=== PATIENT | female | born 1975 | race Caucasian/White ===

== ENCOUNTER 2018-09-23 09:17 | Emergency (ER) | payer MEDICAID | END 2018-09-23 09:44 | disposition home or self-care (01) | LOC: FTE 09:17 | DX: J06.9 Acute upper respiratory infection, unspecified (principal); E11.9 Type 2 diabetes mellitus without complications; I10 Essential (primary) hypertension | CPT/HCPCS: 99282; Z7502 ==

== ENCOUNTER 2019-01-25 10:39 | Inpatient (IN) | payer MEDICAID ==
[2019-01-25 11:02] LABS: ADD MAN DIFF? NO
[2019-01-25 11:05] LABS: BASOPHILS % 0.3 % (0.0-2.0); EOSINOPHILS # 0.1 10^3/ul (0.0-0.5); HEMOGLOBIN 11.2 g/dl (12.0-16.0); LYMPHOCYTES # 1.1 10^3/ul (0.8-2.9); LYMPHOCYTES % 15.7 % (15.0-51.0); MEAN CORPUSCULAR HEMOGLOBIN 27.1 pg (29.0-33.0); MEAN CORPUSCULAR VOLUME 84.7 fl (82.0-101.0); MEAN PLATELET VOLUME 10.4 fl (7.4-10.4); MONOCYTE # 0.4 10^3/ul (0.3-0.9); MONOCYTES % 6.1 % (0.0-11.0); NEUTROPHIL # 5.4 10^3/ul (1.6-7.5); NEUTROPHILS % 76.2 % (39.0-77.0); PLATELET COUNT 198 10^3/UL (140-415); RED BLOOD COUNT 4.13 10^6/ul (4.20-5.40); RED CELL DISTRIBUTION WIDTH 16.2 % (11.5-14.5)
[2019-01-25 11:05] LABS: WHITE BLOOD COUNT 7.1 10^3/ul (4.8-10.8)
[2019-01-25 11:17] LABS: ADD UMIC YES; UR ASCORBIC ACID NEGATIVE (NEGATIVE); UR BACTERIA FEW /HPF (NONE SEEN); UR BILIRUBIN (Dip) NEGATIVE (NEGATIVE); UR BLOOD (Dip) NEGATIVE (NEGATIVE); UR CLARITY CLOUDY (CLEAR); UR COLOR YELLOW (YELLOW); UR GLUCOSE (Dip) NEGATIVE (NEGATIVE); UR KETONES (Dip) NEGATIVE (NEGATIVE); UR LEUKOCYTE ESTERASE (Dip) 2+ Leu/ul (NEGATIVE); UR NITRITE (Dip) NEGATIVE (NEGATIVE); UR RBC 2 /HPF (0-5); UR SPECIFIC GRAVITY (Dip) 1.018 (1.003-1.030); UR SQUAMOUS EPITHELIAL CELL MODERATE /HPF (FEW); UR TOTAL PROTEIN (Dip) NEGATIVE (NEGATIVE); UR UROBILINOGEN (Dip) NEGATIVE (NEGATIVE); UR WBC 10 /HPF (0-5)
[2019-01-25 11:23] LABS: ALANINE AMINOTRANSFERASE 19 IU/L (13-69); ALBUMIN 3.8 g/dl (3.3-4.9); ALBUMIN/GLOBULIN RATIO 1.18; ALKALINE PHOSPHATASE 104 IU/L (42-121); ANION GAP 7 (5-13); ASPARTATE AMINO TRANSFERASE 16 IU/L (15-46); BILIRUBIN,INDIRECT 0.4 mg/dl (0-1.1); BILIRUBIN,TOTAL 0.4 mg/dl (0.2-1.3); BLOOD UREA NITROGEN 9 mg/dl (7-20); CALCIUM 9.5 mg/dl (8.4-10.2); CARBON DIOXIDE 21 mmol/L (21-31); CHLORIDE 110 mmol/L (97-110); CREATININE 0.52 mg/dl (0.44-1.00); Estimated GFR > 60 mL/min (>60); GLUCOSE 113 mg/dl (70-220); POTASSIUM 4.2 mmol/L (3.5-5.1); SODIUM 138 mmol/L (135-144); URIC ACID 3.1 mg/dl (3.1-7.9)
[2019-01-25 11:27] LABS: INR 0.88; PARTIAL THROMBOPLASTIN TIME 30.4 Sec (23.0-35.0); PT RATIO 0.9
[2019-01-25] MEDS ORDERED: AL HYDROX/MG HYDROX/SIMETH 30 ML CUP PO (13:30)
[2019-01-25] MEDS: LACTATED RINGER'S 1,000 ML IV (14:49)
[2019-01-25] MEDS ORDERED: GLUCAGON 1 MG INJ IM (17:00)
[2019-01-25] MEDS ORDERED: DEXTROSE 50% 50 ML SYRINGE IV ×2 (17:00)
[2019-01-25] MEDS ORDERED: GLUCOSE GEL 15 GRAM TUBE BUCCAL (17:00)
[2019-01-25] MEDS ORDERED: GLUCOSE GEL 15 GRAM TUBE PO ×2 (17:00)
[2019-01-25] MEDS ORDERED: ACCU-CHEK XX ×2 (17:05→17:35)
[2019-01-25] MEDS ORDERED: metFORMIN 500 MG TAB GTB (17:35)
[2019-01-25] MEDS: metFORMIN 500 MG TAB PO ×2 (19:00→22:44)
[2019-01-25] MEDS: ACCU-CHEK XX (20:05)
[2019-01-25] MEDS: INSULIN ASPART [NOVOLOG] 3 ML PEN SC (20:18)
[2019-01-25] MEDS: BETAMET NA PHOS/AC(6 MG/ML) 2 ML INJ SYG IM (20:20)
[2019-01-26] MEDS ORDERED: metFORMIN 500 MG TAB PO (08:05)
[2019-01-26] MEDS: ACCU-CHEK XX ×4 (08:40→20:58)
[2019-01-26] MEDS: FERROUS SULFATE (EC) 325 MG TAB PO (08:57)
[2019-01-26] MEDS: metFORMIN 500 MG TAB PO ×2 (08:57→17:48)
[2019-01-26] MEDS: DOCUSATE SODIUM 100 MG CAP PO (08:57)
[2019-01-26] MEDS: PRENATAL VITAMIN PO (08:57)
[2019-01-26] MEDS ORDERED: PRENATAL VITAMIN PO (09:00)
[2019-01-26] MEDS ORDERED: LACTATED RINGER'S 1,000 ML IV (10:00)
[2019-01-26] MEDS: BETAMET NA PHOS/AC(6 MG/ML) 2 ML INJ SYG IM ×2 (15:00→21:26)
[2019-01-26] MEDS: INSULIN ASPART [NOVOLOG] 3 ML PEN SC ×3 (15:38→21:03)
[2019-01-26 16:16] LABS: COLLECTION PERIOD 24 hrs
[2019-01-26 17:16] LABS: COLLECTION PERIOD 24 hrs; CREATININE,URINE RANDOM 72.37 mg/dl (20-320); VOLUME 2200 ml/24hrs; VOLUME 2200 mls
[2019-01-26 17:19] LABS: CREATININE CLEARANCE 212.6 mls/min (84.0-162.0); SCRET 0.52 mg/dl (0.44-1.00)
[2019-01-27] MEDS: PRENATAL VITAMIN PO (08:29)
[2019-01-27] MEDS: DOCUSATE SODIUM 100 MG CAP PO (08:29)
[2019-01-27] MEDS: FERROUS SULFATE (EC) 325 MG TAB PO (08:30)
[2019-01-27] MEDS: metFORMIN 500 MG TAB PO ×2 (08:32→17:59)
[2019-01-27] MEDS: INSULIN ASPART [NOVOLOG] 3 ML PEN SC ×3 (10:41→20:26)
[2019-01-27] MEDS ORDERED: LABETALOL 200 MG TAB PO (14:00)
[2019-01-27] MEDS: ACCU-CHEK XX ×4 (19:00→20:19)
[2019-01-28] MEDS: PRENATAL VITAMIN PO (08:28)
[2019-01-28] MEDS: FERROUS SULFATE (EC) 325 MG TAB PO (08:28)
[2019-01-28] MEDS: DOCUSATE SODIUM 100 MG CAP PO (08:28)
[2019-01-28] MEDS: metFORMIN 500 MG TAB PO (08:29)
== END 2019-01-28 12:21 | disposition home or self-care (01) | DRG 832 ==
LOC: OBT 10:39 → L-D 10:39 → OBT 11:55 → PP1 11:55
DX: O10.913 Unspecified pre-existing hypertension complicating pregnancy, third trimester (principal); O24.113 Pre-existing type 2 diabetes mellitus, in pregnancy, third trimester; O09.523 Supervision of elderly multigravida, third trimester; E11.9 Type 2 diabetes mellitus without complications; O99.213 Obesity complicating pregnancy, third trimester; Z3A.33 33 weeks gestation of pregnancy
CPT/HCPCS: 76818; 80053; 81001; 82575; 82962; 84156; 84560; 85025; 85610; 85730

== ENCOUNTER 2019-01-31 06:24 | Emergency (ER) | payer MEDICAID ==
[2019-01-31 07:07] LABS: ADD MAN DIFF? NO
[2019-01-31 07:12] LABS: WHITE BLOOD COUNT 8.2 10^3/ul (4.8-10.8)
[2019-01-31 07:12] LABS: BASOPHILS % 0.2 % (0.0-2.0); EOSINOPHILS # 0.2 10^3/ul (0.0-0.5); EOSINOPHILS % 2.7 % (0.0-7.0); HEMATOCRIT 31.1 % (37.0-47.0); LYMPHOCYTES # 1.1 10^3/ul (0.8-2.9); LYMPHOCYTES % 13.1 % (15.0-51.0); MEAN CORPUSCULAR HEMOGLOBIN 27.4 pg (29.0-33.0); MEAN CORPUSCULAR HGB CONC 32.2 g/dl (32.0-37.0); MEAN CORPUSCULAR VOLUME 85.2 fl (82.0-101.0); MEAN PLATELET VOLUME 11.3 fl (7.4-10.4); MONOCYTE # 0.7 10^3/ul (0.3-0.9); MONOCYTES % 8.9 % (0.0-11.0); NEUTROPHIL # 6.1 10^3/ul (1.6-7.5); NEUTROPHILS % 74.2 % (39.0-77.0); PLATELET COUNT 177 10^3/UL (140-415); RED BLOOD COUNT 3.65 10^6/ul (4.20-5.40); RED CELL DISTRIBUTION WIDTH 16.5 % (11.5-14.5)
[2019-01-31 07:30] LABS: ALANINE AMINOTRANSFERASE 28 IU/L (13-69); ALBUMIN 3.3 g/dl (3.3-4.9); ALBUMIN/GLOBULIN RATIO 1.03; ALKALINE PHOSPHATASE 112 IU/L (42-121); ANION GAP 8 (5-13); ASPARTATE AMINO TRANSFERASE 27 IU/L (15-46); BILIRUBIN,INDIRECT 0.5 mg/dl (0-1.1); BILIRUBIN,TOTAL 0.5 mg/dl (0.2-1.3); BLOOD UREA NITROGEN 10 mg/dl (7-20); CALCIUM 9.1 mg/dl (8.4-10.2); CARBON DIOXIDE 20 mmol/L (21-31); CHLORIDE 112 mmol/L (97-110); CREATINE KINASE 81 IU/L (23-200); CREATININE 0.54 mg/dl (0.44-1.00); Estimated GFR > 60 mL/min (>60); GLUCOSE 93 mg/dl (70-220); POTASSIUM 4.2 mmol/L (3.5-5.1); SODIUM 140 mmol/L (135-144); TOTAL PROTEIN 6.5 g/dl (6.1-8.1)
[2019-01-31 07:40] LABS: CK INDEX 1.6; CK-MB 1.27 ng/ml (0.0-2.4); TROPONIN-I < 0.012 ng/ml (0.000-0.120)
== END 2019-01-31 10:11 | disposition home or self-care (01) ==
LOC: E/R 06:24
DX: O99.89 Other specified diseases and conditions complicating pregnancy, childbirth and the puerperium (principal); M94.0 Chondrocostal junction syndrome [Tietze]; O10.013 Pre-existing essential hypertension complicating pregnancy, third trimester; O24.313 Unspecified pre-existing diabetes mellitus in pregnancy, third trimester; Z3A.35 35 weeks gestation of pregnancy; Z79.84 Long term (current) use of oral hypoglycemic drugs
CPT/HCPCS: 80053; 82550; 82553; 84484; 85025; 93005; 99284-25

== ENCOUNTER 2019-01-31 10:18 | Inpatient (IN) | payer MEDICAID ==
[~2019-01-31 10:18] MED LIST: EPHEDrine 25 MG/5 ML SYG
[2019-01-31] MEDS ORDERED: LABETALOL 100 MG TAB PO (12:22)
[2019-01-31 12:54] LABS: ADD MAN DIFF? NO
[2019-01-31 12:56] LABS: WHITE BLOOD COUNT 7.9 10^3/ul (4.8-10.8)
[2019-01-31 12:56] LABS: BASOPHILS % 0.4 % (0.0-2.0); EOSINOPHILS # 0.2 10^3/ul (0.0-0.5); HEMATOCRIT 32.5 % (37.0-47.0); HEMOGLOBIN 10.3 g/dl (12.0-16.0); LYMPHOCYTES # 0.8 10^3/ul (0.8-2.9); LYMPHOCYTES % 10.6 % (15.0-51.0); MEAN CORPUSCULAR HGB CONC 31.7 g/dl (32.0-37.0); MEAN CORPUSCULAR VOLUME 85.3 fl (82.0-101.0); MEAN PLATELET VOLUME 11.2 fl (7.4-10.4); MONOCYTE # 0.6 10^3/ul (0.3-0.9); MONOCYTES % 7.5 % (0.0-11.0); NEUTROPHIL # 6.1 10^3/ul (1.6-7.5); NEUTROPHILS % 77.7 % (39.0-77.0); PLATELET COUNT 175 10^3/UL (140-415); RED BLOOD COUNT 3.81 10^6/ul (4.20-5.40); RED CELL DISTRIBUTION WIDTH 16.6 % (11.5-14.5)
[2019-01-31] MEDS ORDERED: OXYTOCIN 30 UNITS/LR 500 ML IV ×3 (13:00→21:36)
[2019-01-31] MEDS ORDERED: CARBOPROST 250 MCG INJ IM (13:00)
[2019-01-31] MEDS ORDERED: METHYLERGONOVINE 0.2 MG INJ IM (13:00)
[2019-01-31] MEDS ORDERED: MISOPROSTOL 200 MCG TAB PR ×2 (13:00→20:30)
[2019-01-31 13:04] LABS: ADD UMIC YES; UR AMORPHOUS CRYSTAL FEW /HPF (NONE SEEN); UR ASCORBIC ACID NEGATIVE (NEGATIVE); UR BACTERIA FEW /HPF (NONE SEEN); UR BILIRUBIN (Dip) NEGATIVE (NEGATIVE); UR BLOOD (Dip) NEGATIVE (NEGATIVE); UR CLARITY SLIGHTLY CLOUDY (CLEAR); UR COLOR YELLOW (YELLOW); UR GLUCOSE (Dip) NEGATIVE (NEGATIVE); UR KETONES (Dip) 1+ mg/dL (NEGATIVE); UR LEUKOCYTE ESTERASE (Dip) 1+ Leu/ul (NEGATIVE); UR NITRITE (Dip) NEGATIVE (NEGATIVE); UR RBC 2 /HPF (0-5); UR SPECIFIC GRAVITY (Dip) 1.013 (1.003-1.030); UR SQUAMOUS EPITHELIAL CELL FEW /HPF (FEW); UR TOTAL PROTEIN (Dip) NEGATIVE (NEGATIVE); UR UROBILINOGEN (Dip) NEGATIVE (NEGATIVE); UR WBC 4 /HPF (0-5)
[2019-01-31 13:05] LABS: CREATININE,URINE RANDOM 61.95 mg/dl (20-320); PROTEIN/CREAT RATIO 0.14 RATIO
[2019-01-31 13:15] LABS: ALANINE AMINOTRANSFERASE 31 IU/L (13-69); ALBUMIN 3.5 g/dl (3.3-4.9); ALBUMIN/GLOBULIN RATIO 1.06; ALKALINE PHOSPHATASE 124 IU/L (42-121); ANION GAP 7 (5-13); ASPARTATE AMINO TRANSFERASE 27 IU/L (15-46); BILIRUBIN,INDIRECT 0.6 mg/dl (0-1.1); BILIRUBIN,TOTAL 0.6 mg/dl (0.2-1.3); BLOOD UREA NITROGEN 8 mg/dl (7-20); CALCIUM 9.3 mg/dl (8.4-10.2); CARBON DIOXIDE 22 mmol/L (21-31); CHLORIDE 110 mmol/L (97-110); CREATININE 0.53 mg/dl (0.44-1.00); Estimated GFR > 60 mL/min (>60); GLUCOSE 77 mg/dl (70-220); POTASSIUM 4.1 mmol/L (3.5-5.1); PROTIME 12.3 Sec (11.9-14.9); SODIUM 139 mmol/L (135-144); TOTAL PROTEIN 6.8 g/dl (6.1-8.1); URIC ACID 4.4 mg/dl (3.1-7.9)
[2019-01-31 13:16] LABS: PARTIAL THROMBOPLASTIN TIME 30.2 Sec (23.0-35.0)
[2019-01-31] MEDS: LACTATED RINGER'S 1,000 ML IV ×4 (13:38→22:24)
[2019-01-31 14:57] LABS: RAPID PLASMA REAGIN NONREACTIVE (NR)
[2019-01-31] MEDS: ACETAMINOPHEN 500 MG TAB PO (19:25)
[2019-01-31] MEDS: DEXTROSE 5%-LR 1,000 ML IV (19:45)
[2019-01-31] MEDS ORDERED: morphine SULFATE/PF (10 MG/10 ML) INJ (20:21)
[2019-01-31] MEDS ORDERED: LANOLIN HPA 1 PKT TOP (20:30)
[2019-01-31] MEDS ORDERED: NIFEdipine 10 MG CAP PO (20:30)
[2019-01-31] MEDS ORDERED: NA PHOSPHATE/BIPHOS 133 ML ENEMA PR (20:30)
[2019-01-31] MEDS ORDERED: OXYCODONE/ACETAMINOPHEN (5/325) TAB PO ×2 (20:30)
[2019-01-31] MEDS: CEFAZOLIN 3 GM in DEXTROSE 5% 100 ML IV (20:45)
[2019-01-31] MEDS ORDERED: MIDAZOLAM 1 MG/ML 2 ML INJ (20:55)
[2019-01-31] MEDS ORDERED: OXYTOCIN 10 UNIT INJ ×2 (20:55→21:30)
[2019-01-31] MEDS ORDERED: ONDANSETRON 4 MG INJ (20:55)
[2019-01-31] MEDS: SENNA/DOCUSATE NA (8.6MG/50MG) TAB PO (21:00)
[2019-01-31] MEDS ORDERED: LORAZEPAM 2 MG INJ IV (21:00)
[2019-01-31] MEDS ORDERED: MEPERIDINE 25 MG INJ IV (21:00)
[2019-01-31] MEDS ORDERED: NALOXONE (0.4 MG/ML) INJ IV (21:00)
[2019-01-31] MEDS ORDERED: NALBUPHINE HCL (10 MG/1 ML) INJ IV (21:00)
[2019-01-31] MEDS ORDERED: MIDAZOLAM 1 MG/ML 2 ML INJ IV (21:00)
[2019-01-31] MEDS ORDERED: DIPHENHYDRAMINE 50 MG INJ IV ×2 (21:00)
[2019-01-31] MEDS ORDERED: ZOLPIDEM 5 MG TAB PO (21:00)
[2019-01-31] MEDS ORDERED: HYDROmorphONE 0.5 MG/0.5 ML SYG IV ×2 (21:00)
[2019-01-31] MEDS ORDERED: PHENYLephrine (100 MCG/ML) 10ML SYG (21:36)
[2019-01-31] MEDS: LABETALOL 200 MG TAB PO (22:18)
[2019-01-31] MEDS: ONDANSETRON 4 MG INJ IV (22:19)
[2019-01-31] MEDS: LABETALOL HCL 20MG INJ IV ×2 (22:50→23:48)
[2019-01-31] MEDS: OXYTOCIN 30 UNITS/LR 500 ML IV (22:56)
[2019-02-01] MEDS: LABETALOL HCL 20MG INJ IV (00:24)
[2019-02-01] MEDS: LACTATED RINGER'S 1,000 ML IV (04:47)
[2019-02-01] MEDS: LABETALOL 200 MG TAB PO ×3 (05:56→21:56)
[2019-02-01 06:52] LABS: ADD MAN DIFF? NO
[2019-02-01 06:57] LABS: ABNORMAL IP MESSAGE 1; BASOPHILS % 0.1 % (0.0-2.0); EOSINOPHILS % 0.3 % (0.0-7.0); HEMATOCRIT 29.4 % (37.0-47.0); HEMOGLOBIN 9.3 g/dl (12.0-16.0); LYMPHOCYTES # 0.5 10^3/ul (0.8-2.9); LYMPHOCYTES % 5.4 % (15.0-51.0); MEAN CORPUSCULAR HEMOGLOBIN 27.3 pg (29.0-33.0); MEAN CORPUSCULAR HGB CONC 31.6 g/dl (32.0-37.0); MEAN CORPUSCULAR VOLUME 86.2 fl (82.0-101.0); MEAN PLATELET VOLUME 11.6 fl (7.4-10.4); MONOCYTE # 0.8 10^3/ul (0.3-0.9); MONOCYTES % 7.8 % (0.0-11.0); NEUTROPHIL # 8.3 10^3/ul (1.6-7.5); NEUTROPHILS % 85.9 % (39.0-77.0); PLATELET COUNT 160 10^3/UL (140-415); RED BLOOD COUNT 3.41 10^6/ul (4.20-5.40); RED CELL DISTRIBUTION WIDTH 16.5 % (11.5-14.5)
[2019-02-01 06:57] LABS: WHITE BLOOD COUNT 9.6 10^3/ul (4.8-10.8)
[2019-02-01 06:58] LABS: POSITIVE DIFF @See below
[2019-02-01] MEDS: SENNA/DOCUSATE NA (8.6MG/50MG) TAB PO ×2 (08:41→21:55)
[2019-02-01] MEDS: metFORMIN 500 MG TAB PO ×2 (08:42→17:54)
[2019-02-01] MEDS: PIPER-TAZO 3.375 GM IV (PMX) 100 ML IVPB ×3 (08:43→21:55)
[2019-02-01] MEDS: KETOROLAC 30 MG INJ IV (12:18)
[2019-02-01 14:39] LABS: ADD UMIC YES; UR ASCORBIC ACID NEGATIVE (NEGATIVE); UR BILIRUBIN (Dip) NEGATIVE (NEGATIVE); UR BLOOD (Dip) 3+ mg/dL (NEGATIVE); UR CLARITY SLIGHTLY CLOUDY (CLEAR); UR COLOR YELLOW (YELLOW); UR GLUCOSE (Dip) NEGATIVE (NEGATIVE); UR KETONES (Dip) 1+ mg/dL (NEGATIVE); UR LEUKOCYTE ESTERASE (Dip) TRACE Leu/ul (NEGATIVE); UR MUCUS FEW /HPF (NONE SEEN); UR NITRITE (Dip) NEGATIVE (NEGATIVE); UR RBC > 182 /HPF (0-5); UR SQUAMOUS EPITHELIAL CELL FEW /HPF (FEW); UR TOTAL PROTEIN (Dip) 1+ mg/dl (NEGATIVE); UR UROBILINOGEN (Dip) 1+ mg/dL (NEGATIVE); UR WBC 10 /HPF (0-5)
[2019-02-01 15:22] LABS: LACTIC ACID 1.2 mmol/L (0.5-2.0)
[2019-02-01] MEDS: ENOXAPARIN 40 MG/0.4 ML SYG SC (16:05)
[2019-02-01] MEDS: ACETAMINOPHEN 325 MG TAB PO ×2 (18:03→22:24)
[2019-02-01] MEDS: SOD CHLORIDE 0.9% 100 ML (19:38)
[2019-02-01] MEDS: IOHEXOL 100 ML (19:38)
[2019-02-01 20:35] LABS: D-DIMER 3591.02 ng/ml (<460)
[2019-02-02] MEDS: ACETAMINOPHEN 325 MG TAB PO ×2 (05:56→13:58)
[2019-02-02] MEDS: PIPER-TAZO 3.375 GM IV (PMX) 100 ML IVPB ×3 (05:56→22:53)
[2019-02-02] MEDS: LABETALOL 200 MG TAB PO ×3 (05:57→22:06)
[2019-02-02] MEDS: metFORMIN 500 MG TAB PO ×2 (08:37→17:54)
[2019-02-02] MEDS: SENNA/DOCUSATE NA (8.6MG/50MG) TAB PO ×2 (08:37→22:06)
[2019-02-02] MEDS: ENOXAPARIN 40 MG/0.4 ML SYG SC ×2 (08:38→23:35)
[2019-02-02 08:50] LABS: ADD MAN DIFF? NO
[2019-02-02 08:54] LABS: WHITE BLOOD COUNT 9.2 10^3/ul (4.8-10.8)
[2019-02-02 08:54] LABS: BASOPHILS % 0.3 % (0.0-2.0); EOSINOPHILS # 0.1 10^3/ul (0.0-0.5); EOSINOPHILS % 1.5 % (0.0-7.0); HEMATOCRIT 30.6 % (37.0-47.0); HEMOGLOBIN 9.9 g/dl (12.0-16.0); LYMPHOCYTES # 0.7 10^3/ul (0.8-2.9); LYMPHOCYTES % 7.3 % (15.0-51.0); MEAN CORPUSCULAR HEMOGLOBIN 27.4 pg (29.0-33.0); MEAN CORPUSCULAR HGB CONC 32.4 g/dl (32.0-37.0); MEAN CORPUSCULAR VOLUME 84.8 fl (82.0-101.0); MEAN PLATELET VOLUME 11.4 fl (7.4-10.4); MONOCYTE # 0.8 10^3/ul (0.3-0.9); MONOCYTES % 8.6 % (0.0-11.0); NEUTROPHIL # 7.5 10^3/ul (1.6-7.5); NEUTROPHILS % 81.6 % (39.0-77.0); PLATELET COUNT 194 10^3/UL (140-415); RED BLOOD COUNT 3.61 10^6/ul (4.20-5.40); RED CELL DISTRIBUTION WIDTH 16.9 % (11.5-14.5)
[2019-02-02] MEDS: GUAIFENESIN 20 MG/ML 5ML CUP PO ×3 (12:24→22:10)
[2019-02-03] MEDS: GUAIFENESIN 20 MG/ML 5ML CUP PO ×4 (03:01→23:15)
[2019-02-03] MEDS: PIPER-TAZO 3.375 GM IV (PMX) 100 ML IVPB ×3 (05:37→23:06)
[2019-02-03] MEDS: LABETALOL 200 MG TAB PO ×3 (05:37→22:24)
[2019-02-03] MEDS: metFORMIN 500 MG TAB PO ×2 (08:21→16:56)
[2019-02-03] MEDS: SENNA/DOCUSATE NA (8.6MG/50MG) TAB PO ×2 (08:21→22:22)
[2019-02-03] MEDS: ENOXAPARIN 40 MG/0.4 ML SYG SC ×2 (08:24→22:24)
[2019-02-03] MEDS ORDERED: ENOXAPARIN 40 MG/0.4 ML SYG SC (09:00)
[2019-02-03] MEDS: MEASLES,MUMPS,RUBELLA VACCINE INJ SC* (09:00)
[2019-02-03] MEDS: DIPHTH/TET/ACEL PERTUSS (ADULT) 0.5 ML VIAL IM* (09:00)
[2019-02-04] MEDS: GUAIFENESIN 20 MG/ML 5ML CUP PO (03:16)
[2019-02-04] MEDS: LABETALOL 200 MG TAB PO (06:01)
[2019-02-04] MEDS: PIPER-TAZO 3.375 GM IV (PMX) 100 ML IVPB (06:04)
[2019-02-04] MEDS: metFORMIN 500 MG TAB PO (08:32)
[2019-02-04] MEDS: ENOXAPARIN 40 MG/0.4 ML SYG SC (08:34)
[2019-02-04] MEDS: SENNA/DOCUSATE NA (8.6MG/50MG) TAB PO (08:35)
[2019-02-04] MEDS: NIFEdipine (XL) 60 MG TAB PO (08:50)
== END 2019-02-04 16:00 | disposition home or self-care (01) | DRG 786 ==
LOC: OBT 10:18 → PP1 02-01 01:25 → L-D 10:20 → OBT 12:47 → L-D 12:47
PROVIDERS: Specialist
PROC: 10D00Z1 Extraction of Products of Conception, Low, Open Approach (ICD-10-PCS; principal; 2019-01-31 20:45)
DX: O65.5 Obstructed labor due to abnormality of maternal pelvic organs (principal); O60.13X0 Preterm labor second trimester with preterm delivery third trimester, not applicable or unspecified; O24.12 Pre-existing type 2 diabetes mellitus, in childbirth; O10.92 Unspecified pre-existing hypertension complicating childbirth; O34.211 Maternal care for low transverse scar from previous cesarean delivery; O13.4 Gestational [pregnancy-induced] hypertension without significant proteinuria, complicating childbirth; E11.9 Type 2 diabetes mellitus without complications; O99.214 Obesity complicating childbirth; Z3A.34 34 weeks gestation of pregnancy; Z37.0 Single live birth
CPT/HCPCS: 71046; 71275; 76815; 76818; 80053; 81001; 81003; 82570; 82962; 83605; 84560; 85025; 85378; 85610; 85730; 86592; 86850; 86900; 86901; 87040-91; 87086; 99464